=== PATIENT | male | born 1985 | race Two or more races ===

== ENCOUNTER 2019-04-18 12:40 | Emergency (ER) | payer SELFPAY ==
[2019-04-18] MEDS ORDERED: Morphine 4 MG/ML Syringe ONE (13:05)
[2019-04-18] MEDS ORDERED: Ondansetron 4 MG/2 ML SDV ONE (13:05)
[2019-04-18] MEDS ORDERED: Morphine 4 MG/ML Syringe IVPUSH ONE ×2 (13:07→15:12)
[2019-04-18] MEDS ORDERED: Ondansetron 4 MG/2 ML SDV IVPUSH ONE (13:07)
[2019-04-18] MEDS ORDERED: ceFAZolin 1 GM Vial IM ONE (13:14)
--- NOTE | 2019-04-18 13:26 | CR ---
Chest: 2 views of the chest were obtained. Comparison: No previous chest x-ray. Heart size and mediastinum are normal. Lungs are clear. Bony structures appear within normal limits for the patient's age. Impression: 1. Nothing acute is seen on 2 view chest x-ray. Diagnostic code #1 This report was dictated in [place] Standard Time
--- NOTE | 2019-04-18 13:26 | EDM.PDOC ---
ED HPI GENERAL MEDICAL PROBLEM - General Chief Complaint: Trauma Stated Complaint: NAIL IN HIS LT SIDE Time Seen by Provider: 04/18/19 13:00 Source of Information: Reports: Patient History Limitations: Reports: Language Barrier - History of Present Illness INITIAL COMMENTS - FREE TEXT/NARRATIVE: This 34 year old male while walking around at a construction site was accidently shot with a nail gun. The distance the patient was standing from the nail gun is unknown. He complains of a nail in his left lower chest to abdominal area. His friend states that the nail was about 2 inches long. He complains of pain in the area of the nail. He denies any SOB or abdominal pain. He denies any other symptoms. A plain film PA and Lateral chest x-ray was done. The lungs are without pneumothorax and mediastinal structures are intact. The nail appears to be in the left upper quad of the abdomen. After attempting to remove it, I noticed that it was a screw type nail. I decided to hold off on removal and get a CT of the chest, abdomen pelvis with contrast. Prior to going to CT, all of his vital signs are normal. He was given Morphine 4mg IV and Zofran 4mg IV. He will be placed on Ancef 1gram IV Onset: Sudden (as noted above) Severity: Moderate - Related Data Allergies Allergy/AdvReac Type Severity Reaction Status Date / Time No Known Allergies Allergy Verified 04/18/19 12:44 Home Meds: Home Meds Ibuprofen [Motrin] 800 mg PO BIDM PRN 5 Days #10 tab 04/18/19 [Rx] cephALEXin [Keflex] 500 mg PO Q12H PRN 6 Days #6 cap 04/18/19 [Rx] Past Medical History - Past Health History Medical/Surgical History: Denies Medical/Surgical History - Infectious Disease History Infectious Disease History: Reports: Other (See Below) Other Infectious Disease History: unknown Social & Family History - Family History Family Medical History: Noncontributory - Tobacco Use Smoking Status *Q: Unknown Ever Smoked - Caffeine Use Caffeine Use: Reports: None - Recreational Drug Use Recreational Drug Use: No Review of Systems - Review of Systems Review Of Systems: See Below Constitutional: Reports: No Symptoms Eyes: Reports: No Symptoms Ears: Reports: No Symptoms Nose: Reports: No Symptoms Mouth/Throat: Reports: No Symptoms Respiratory: Reports: No Symptoms Cardiovascular: Reports: No Symptoms GI/Abdominal: Reports: No Symptoms Genitourinary: Reports: No Symptoms Musculoskeletal: Reports: Other (pain in area of nail of left chest/upper left abdomen) Neurological: Reports: No Symptoms ED EXAM, GENERAL - Physical Exam Exam: See Below Exam Limited By: Language Barrier (History was obtained through an enterpeture) General Appearance: Alert, WD/WN, Anxious, Mild Distress Eye Exam: Bilateral Eye: EOMI, Normal Inspection, PERRL Ears: Normal External Exam, Normal Canal, Hearing Grossly Normal, Normal TMs Ear Exam: Bilateral Ear: Auricle Normal, Canal Normal, TM normal Nose: Normal Inspection, Normal Mucosa, No Blood Throat/Mouth: Normal Inspection, Normal Lips, Normal Teeth, Normal Gums, Normal Oropharynx, Normal Voice, No Airway Compromise Head: Atraumatic, Normocephalic Neck: Normal Inspection, Supple, Non-Tender, Full Range of Motion, Other (No JVD ) Respiratory/Chest: No Respiratory Distress, Lungs Clear, Normal Breath Sounds, No Accessory Muscle Use, Other (Tenderness is noted over the nail site area) Cardiovascular: Normal Peripheral Pulses, Regular Rate, Rhythm, No JVD, No Murmur Peripheral Pulses: 3+: Dorsalis Pedis (L), Dorsalis Pedis (R), 4+: Carotid (L), Carotid (R), Femoral (L), Femoral (R) GI/Abdominal: Normal Bowel Sounds, Soft, Non-Tender, No Organomegaly, No Distention, No Abnormal Bruit, No Mass, Other (nail appears to be located in the high left upper quadrant) (Male) Exam: Deferred Rectal (Males) Exam: Deferred Back Exam: Normal Inspection, Full Range of Motion, NT Extremities: Normal Inspection, Normal Range of Motion, Non-Tender, Normal Capillary Refill, No Pedal Edema Neurological: Alert, Oriented, CN II-XII Intact, Normal Cognition, Normal Gait, Normal Reflexes, No Motor/Sensory Deficits ED TRAUMA PROCEDURES - Foreign Body Removal Consent Obtained: Patient, Other (Verbal consent) Performing Doctor:: Adán Neff Foreign Body Other Location Comment:: Screw type power nail was located approx. 2.5 inches below the left nipple. Anesthesia Type: Local Findings:: After Betadine solution being thoroughly used to provide a sterile area, 1% Lidocaine with Epi was used to open the wound of about 3.5cm for exposure of the nail and it's subsequent removal. A martha was noted midway on the nail which was the reason why the nail could not be pulled out. The wound was explored and irrigated with 15ml of Betadine solution. No foreign body was identified. The wound was closed with 3, 3 Ethilon sutures. A sterile dressing was applied. The patient tolerated the procedure well. He was discharged with his friend home and placed on Keflex. Complications:: No Course - Vital Signs Last Recorded V/S: Last Vital Signs Temp Pulse 71 04/18/19 13:09 Resp 20 04/18/19 13:09 BP 138/85 04/18/19 13:09 Pulse Ox 97 04/18/19 13:09 - Orders/Labs/Meds Orders: Active Orders 24 hr Category Date Time Status UA W/SARITA RFLX IF INDICATED [URIN] Stat Lab 04/18/19 12:59 Ordered Labs: Laboratory Tests 04/18/19 04/18/19 04/18/19 Range/Units 13:05 13:05 13:05 WBC 5.48 (4.0-11.0) K/uL RBC 4.82 (4.50-5.90) M/uL Hgb 15.6 (13.0-17.0) g/dL Hct 43.7 (38.0-50.0) % MCV 90.7 (80.0-98.0) fL MCH 32.4 H (27.0-32.0) pg MCHC 35.7 (31.0-37.0) g/dL RDW Std Deviation 40.9 (28.0-62.0) fl RDW Coeff of Debbie 12 (11.0-15.0) % Plt Count 262 (150-400) K/uL MPV 10.10 (7.40-12.00) fL Neut % (Auto) 42.6 L (48.0-80.0) % Lymph % (Auto) 48.4 H (16.0-40.0) % Mayes % (Auto) 7.3 (0.0-15.0) % Eos % (Auto) 1.5 (0.0-7.0) % Baso % (Auto) 0.2 (0.0-1.5) % Neut # (Auto) 2.3 (1.4-5.7) K/uL Lymph # (Auto) 2.7 H (0.6-2.4) K/uL Mayes # (Auto) 0.4 (0.0-0.8) K/uL Eos # (Auto) 0.1 (0.0-0.7) K/uL Baso # (Auto) 0.0 (0.0-0.1) K/uL Nucleated RBC % 0.0 /100WBC Nucleated RBCs # 0 K/uL INR 1.01 Sodium 142 (136-148) mmol/L Potassium 3.4 L (3.5-5.1) mmol/L Chloride 104 (98-107) mmol/L Carbon Dioxide 25.5 (21.0-32.0) mmol/L BUN 19 H (7.0-18.0) mg/dL Creatinine 1.2 (0.8-1.3) mg/dL Est Cr Clr Drug Dosing 83.92 mL/min Estimated GFR (MDRD) > 60.0 ml/min Glucose 94 (74-106) mg/dL Calcium 8.8 (8.5-10.1) mg/dL Total Bilirubin 0.5 (0.2-1.0) mg/dL AST 21 (15-37) IU/L ALT 32 (14-63) IU/L Alkaline Phosphatase 74 (46-116) U/L Total Protein 7.9 (6.4-8.2) g/dL Albumin 4.8 (3.4-5.0) g/dL Globulin 3.1 (2.6-4.0) g/dL Albumin/Globulin Ratio 1.5 (0.9-1.6) Meds: Medications Discontinued Medications Generic Name Dose Route Start Last Admin Trade Name Freq PRN Reason Stop Dose Admin Cefazolin Sodium 1 gm 04/18/19 13:14 04/18/19 13:55 Ancef IM 04/18/19 13:15 Not Given ONETIME ONE Sodium Chloride 1,000 mls @ 999 mls/hr 04/18/19 13:39 04/18/19 13:51 Normal Saline IV 04/18/19 14:39 999 mls/hr .Bolus ONE Administration Sodium Chloride Confirm 04/18/19 13:43 04/18/19 13:57 Normal Saline Administered 04/18/19 13:44 Not Given Dose 100 mls @ as directed .ROUTE .STK-MED ONE Cefazolin Sodium/Dextrose 1 gm 50 mls @ 100 mls/hr 04/18/19 13:52 04/18/19 13 :56 / Premix IV 04/18/19 14:21 100 mls/hr ONETIME ONE Administration Lidocaine/Epinephrine Confirm 04/18/19 14:53 Xylocaine 1% With Epinephrine 1:100,000 Administered 04/18/19 14:54 Dose 20 ml .ROUTE .STK-MED ONE Lidocaine/Epinephrine 20 ml 04/18/19 15:02 04/18/19 15:03 Xylocaine 1% With Epinephrine 1:100,000 INJECT 04/18/19 15:03 20 ml ONETIME ONE Administration Morphine Sulfate 4 mg 04/18/19 13:07 04/18/19 13:08 Morphine IVPUSH 04/18/19 13:08 4 mg ONETIME ONE Administration Morphine Sulfate Confirm 04/18/19 13:05 04/18/19 13:39 Morphine Administered 04/18/19 13:06 Not Given Dose 8 mg .ROUTE .STK-MED ONE Morphine Sulfate 4 mg 04/18/19 15:12 Morphine IVPUSH 04/18/19 15:13 ONETIME ONE Ondansetron HCl 4 mg 04/18/19 13:07 04/18/19 13:08 Zofran IVPUSH 04/18/19 13:08 4 mg ONETIME ONE Administration Ondansetron HCl Confirm 04/18/19 13:05 04/18/19 13:39 Zofran Administered 04/18/19 13:06 Not Given Dose 4 mg .ROUTE .STK-MED ONE Departure - Departure Time of Disposition: 15:37 Disposition: Home, Self-Care 01 Condition: Good Clinical Impression: Foreign body (FB) in soft tissue - Discharge Information *PRESCRIPTION DRUG MONITORING PROGRAM REVIEWED*: Yes *COPY OF PRESCRIPTION DRUG MONITORING REPORT IN PATIENT [place]: Yes Forms: ED Department Discharge Additional Instructions: Take all medications as directed. Rest for the next 12 hours. Wound check in 4 days and sutures out in 10 days. Return to the ED if your condition gets worse or should you need to have your sutures removed. The following information is given to patients seen in the emergency department who are being discharged to home. This information is to outline your options for follow-up care. We provide all patients seen in our emergency department with a follow-up referral. The need for follow-up, as well as the timing and circumstances, are variable depending upon the specifics of your emergency department visit. If you don't have a primary care physician on staff, we will provide you with a referral. We always advise you to contact your personal physician following an emergency department visit to inform them of the circumstance of the visit and for follow-up with them and/or the need for any referrals to a consulting specialist. The emergency department will also refer you to a specialist when appropriate. This referral assures that you have the opportunity for follow-up care with a specialist. All of these measure are taken in an effort to provide you with optimal care, which includes your follow-up. Under all circumstances we always encourage you to contact your private physician who remains a resource for coordinating your care. When calling for follow-up care, please make the office aware that this follow-up is from your recent emergency room visit. If for any reason you are refused follow-up, please contact the [facility] Emergency Department at and asked to speak to the emergency department charge nurse. Sepsis Event Note - Evaluation Sepsis Screening Result: No Definite Risk - Focused Exam Vital Signs: Vital Signs Pulse Resp BP Pulse Ox 04/18/19 13:09 71 20 138/85 97 04/18/19 12:44 91 18 137/79 98 Date Exam was Performed: 04/18/19 Time Exam was Performed: 15:36 - My Orders Last 24 Hours: My Active Orders 04/18/19 12:59 UA W/SARITA RFLX IF INDICATED [URIN] Stat - Assessment/Plan Last 24 Hours: My Active Orders 04/18/19 12:59 UA W/SARITA RFLX IF INDICATED [URIN] Stat
[2019-04-18] MEDS ORDERED: Sodium Chloride 0.9% 1,000 ML IV ONE (13:39)
[2019-04-18] MEDS ORDERED: Sodium Chloride 0.9% 100 ML ONE (13:43)
[2019-04-18 13:48] LABS: BLOOD UREA NITROGEN,BUN 19 mg/dL (7.0-18.0); CARBON DIOXIDE,CO2 25.5 mmol/L (21.0-32.0); CHLORIDE,CL 104 mmol/L (98-107); GLUCOSE RANDOM 94 mg/dL (74-106); POTASSIUM,K 3.4 mmol/L (3.5-5.1); SODIUM,NA 142 mmol/L (136-148)
[2019-04-18] MEDS ORDERED: ceFAZolin 1 GM in Premix Bag 1 BAG IV ONE (13:52)
--- NOTE | 2019-04-18 14:15 | CT ---
CT chest Technique: Multiple axial sections through the chest were obtained. Intravenous contrast was utilized. Comparison: Prior chest CT is not available. Findings: Aorta and pulmonary arteries show normal opacifications. No mediastinal hematoma is seen. No adenopathy is noted. No axillary abnormalities are noted. No pericardial thickening is seen. Metallic foreign body (metallic nail) is noted within the left upper abdomen which involves the subcutaneous fat but does not penetrate into the abdominal wall muscle. Lungs are clear. No pneumothorax is seen. No pulmonary contusion is identified. Impression: 1. Metallic nail within the left anterior abdominal wall which terminates within the subcutaneous fat and shows no penetration into the abdominal wall musculature. 2. CT chest is otherwise unremarkable. Diagnostic code #3 This report was dictated in [place] Standard Time
--- NOTE | 2019-04-18 14:25 | CT ---
CT abdomen and pelvis Technique: Multiple axial sections were obtained from above the dome of the diaphragm inferiorly through the pubic symphysis. Intravenous contrast was utilized. No oral contrast has been given. Comparison: No prior abdominal imaging. Findings: Metallic nail is noted within the left anterior abdominal wall. Nail penetrates into the subcutaneous fat but shows no penetration into the abdominal wall musculature. Liver and spleen appear within normal limits. Single gallstone which is partially calcified is noted within the gallbladder. Adrenal glands show no nodule. Pancreas is within normal limits. Kidneys show symmetric contrast enhancement without hydronephrosis or mass. Aorta shows no aneurysm. No retroperitoneal adenopathy or mesenteric abnormalities are seen. No pelvic mass or adenopathy is seen. No free fluid or inflammatory change is identified within the abdomen or pelvis. Appendix is seen which is normal in size. Impression: 1. Metallic nail projected within the anterior left abdominal wall. This penetrates into skin and subcutaneous fat but does not penetrate into any muscle. 2. Single gallstone within the gallbladder. 3. No additional abnormality is identified on CT study of the abdomen and pelvis. Diagnostic code #5 This report was dictated in [place] Standard Time
[2019-04-18] MEDS ORDERED: Lidocaine 1% with EPINEPHrine 1:100,000 20 ML MDV ONE (14:53)
[2019-04-18] MEDS ORDERED: Lidocaine 1% with EPINEPHrine 1:100,000 20 ML MDV INJECT ONE (15:02)
[2019-04-18] MEDS ORDERED: Iopamidol 755 MG/ML 200 ML Multipack Bottle IVPUSH ONE (16:01)
== END 2019-04-18 16:10 | disposition home or self-care (01) ==
LOC: MW.ED 12:40
DX: S21.122A Laceration with foreign body of left front wall of thorax without penetration into thoracic cavity, initial encounter (principal); S31.12 Laceration with foreign body of abdominal wall without penetration into peritoneal cavity; W29.4XXA Contact with nail gun, initial encounter
CPT/HCPCS: 12002; 36415; 71046; 71260; 74177; 80053; 85025; 85610; 96365; 96375; 96376; 99284; J0690; J2270; J2405; J7030; Q9967; 20520

== ENCOUNTER 2023-04-26 18:38 | Emergency (ER) | payer SELFPAY ==
[2023-04-26] MEDS ORDERED: Ondansetron 4 MG/2 ML SDV IVPUSH ONE ×2 (19:03→20:26)
[2023-04-26] MEDS ORDERED: Morphine 4 MG/ML Syringe IVPUSH ONE ×2 (19:03→21:22)
[2023-04-26] MEDS ORDERED: Sodium Chloride 0.9% 10 ML Syringe FLUSH PRN (19:03)
[2023-04-26] MEDS ORDERED: Sodium Chloride 0.9% 2.5 ML Syringe FLUSH PRN (19:03)
[2023-04-26] MEDS ORDERED: Sodium Chloride 0.9% 1,000 ML IV ONE (19:03)
[2023-04-26] MEDS ORDERED: Naloxone 0.4 MG/ML SDV IVPUSH PRN (19:03)
[2023-04-26 19:45] LABS: BASOPHILS ABSOLUTE AUTO 0.02 K/uL (0.00-0.20); BASOPHILS PERCENT AUTO 0.3 % (0.0-1.0); EOSINOPHILS ABSOLUTE AUTO 0.06 K/uL (0.00-0.45); EOSINOPHILS PERCENT AUTO 0.9 % (0.0-6.0); HEMATOCRIT 42.5 % (42.0-52.0); HEMOGLOBIN 15.6 g/dL (14.0-18.0); IMMATURE GRAN ABSOLUTE AUTO 0.02 K/uL (0.00-0.05); IMMATURE GRAN PERCENT AUTO 0.3 % (0.0-0.4); LYMPHOCYTES ABSOLUTE AUTO 1.47 K/uL (1.00-4.80); LYMPHOCYTES PERCENT AUTO 22.2 % (24.0-44.0); MEAN CORPUSCULAR HEMOGLOBIN 32.4 pg (28.0-32.0); MEAN CORPUSCULAR HGB CONC 36.7 g/dL (32.0-36.0); MEAN CORPUSCULAR VOLUME 88.2 fL (83.0-99.0); MEAN PLATELET VOLUME 9.8 fL (9.4-12.4); MONOCYTES ABSOLUTE AUTO 0.81 K/uL (0.00-0.80); MONOCYTES PERCENT AUTO 12.3 % (0.0-8.0); NEUTROPHILS ABSOLUTE AUTO 4.23 K/uL (1.80-7.70); PLATELET COUNT,PLT 240 K/uL (150-400); RED BLOOD CELL COUNT 4.82 M/uL (4.52-5.90); WHITE BLOOD CELL COUNT,WBC 6.61 K/uL (3.9-11.3)
[2023-04-26] MEDS ORDERED: Morphine 2 MG/ML SYRINGE IVPUSH ONE (20:26)
[2023-04-26] MEDS ORDERED: Ketorolac 30 MG/ML SDV IVPUSH ONE (20:26)
[2023-04-26 20:33] LABS: BILIRUBIN TOTAL 0.8 mg/dL (0.2-1.0); CALCIUM 9.4 mg/dL (8.5-10.1); CARBON DIOXIDE,CO2 25.6 mmol/L (21.0-32.0); CREATININE 1.4 mg/dL (0.8-1.3); EST CRCL DRUG DOSING (CG) 52.92 mL/min; POTASSIUM,K 3.8 mmol/L (3.5-5.1)
[2023-04-26] MEDS ORDERED: Iopamidol 755 MG/ML 500 ML Multipack Bottle IVPUSH STA (22:34)
[2023-04-26] MEDS ORDERED: droPERidol 5 MG/2 ML SDV IVPUSH ONE (23:19)
[2023-04-26 23:35] LABS: APPEARANCE,URINE CLEAR; BILIRUBIN,URINE NEGATIVE (NEGATIVE); COLOR,URINE YELLOW; GLUCOSE,URINE NEGATIVE (NEGATIVE); KETONES,URINE 15 mg/dL (NEGATIVE); LEUKOCYTE ESTERASE,URINE NEGATIVE (NEGATIVE); NITRITE,URINE NEGATIVE (NEGATIVE); OCCULT BLOOD,URINE NEGATIVE (NEGATIVE); PROTEIN,URINE NEGATIVE (NEGATIVE)
[2023-04-27] MEDS ORDERED: Naloxone 0.4 MG/ML SDV IVPUSH PRN (00:12)
[2023-04-27] MEDS ORDERED: HYDROmorphone 1 MG/ML Syringe IVPUSH ONE (00:12)
== END 2023-04-27 00:29 | disposition home or self-care (01) ==
LOC: MERGE 18:38 → MW.ED 18:38
DX: K80.50 Calculus of bile duct without cholangitis or cholecystitis without obstruction (principal)
CPT/HCPCS: 36415; 74177; 76705; 80053; 81003; 83690; 85025; 96361; 96374; 96375; 96376; 99284; J1170; J1790; J1885; J2270; J2405; J3490; J7030; Q9967

== ENCOUNTER 2023-04-27 10:02 | Day surgery (SDC) | payer SELFPAY ==
[2023-04-27] MEDS ORDERED: Sodium Chloride 0.9% 1,000 ML IV ONE (11:07)
[2023-04-27] MEDS ORDERED: Ondansetron 4 MG/2 ML SDV IVPUSH ONE (11:08)
[2023-04-27] MEDS ORDERED: HYDROmorphone 1 MG/ML Syringe IVPUSH ONE (11:08)
[2023-04-27 11:56] LABS: BASOPHILS ABSOLUTE AUTO 0.01 K/uL (0.00-0.20); BASOPHILS PERCENT AUTO 0.1 % (0.0-1.0); EOSINOPHILS ABSOLUTE AUTO 0.01 K/uL (0.00-0.45); EOSINOPHILS PERCENT AUTO 0.1 % (0.0-6.0); HEMATOCRIT 41.8 % (42.0-52.0); HEMOGLOBIN 15.2 g/dL (14.0-18.0); IMMATURE GRAN ABSOLUTE AUTO 0.03 K/uL (0.00-0.05); IMMATURE GRAN PERCENT AUTO 0.4 % (0.0-0.4); LYMPHOCYTES ABSOLUTE AUTO 0.92 K/uL (1.00-4.80); LYMPHOCYTES PERCENT AUTO 10.8 % (24.0-44.0); MEAN CORPUSCULAR HEMOGLOBIN 32.3 pg (28.0-32.0); MEAN CORPUSCULAR HGB CONC 36.4 g/dL (32.0-36.0); MEAN CORPUSCULAR VOLUME 88.7 fL (83.0-99.0); MONOCYTES ABSOLUTE AUTO 0.98 K/uL (0.00-0.80); MONOCYTES PERCENT AUTO 11.5 % (0.0-8.0); NEUTROPHILS ABSOLUTE AUTO 6.54 K/uL (1.80-7.70); NEUTROPHILS PERCENT AUTO 77.1 % (41.0-71.0); PLATELET COUNT,PLT 233 K/uL (150-400); RED BLOOD CELL COUNT 4.71 M/uL (4.52-5.90); WHITE BLOOD CELL COUNT,WBC 8.49 K/uL (3.9-11.3)
[2023-04-27 12:13] LABS: A/G RATIO 0.9 (0.9-1.6); ALBUMIN 3.7 g/dL (3.4-5.0); CARBON DIOXIDE,CO2 24.5 mmol/L (21.0-32.0); CREATININE 1.3 mg/dL (0.8-1.3); EST CRCL DRUG DOSING (CG) 72.03 mL/min; POTASSIUM,K 3.6 mmol/L (3.5-5.1)
[2023-04-27 12:16] LABS: LACTIC ACID 1.2 mmol/L (0.4-2.0)
[2023-04-27 12:28] LABS: HEMOGLOBIN A1C 4.8 %
[2023-04-27] MEDS ORDERED: Piperacillin/Tazobactam 3.375 GM in Sodium Chloride 0.9% 100 ML IV ONE (12:37)
[2023-04-27] MEDS ORDERED: Piperacillin/Tazobactam 4.5 GM in Sodium Chloride 0.9% 100 ML IV ONE (12:40)
[2023-04-27] MEDS ORDERED: Ropivacaine 0.5% 5 MG/ML 30 ML SDV ONE (13:24)
[2023-04-27] MEDS ORDERED: Famotidine 20 MG/2 ML SDV ONE (13:25)
[2023-04-27] MEDS ORDERED: fentaNYL 250 MCG/5 ML SDV ONE (13:33)
[2023-04-27] MEDS ORDERED: Propofol 200 MG/20 ML SDV ONE (13:33)
[2023-04-27] MEDS ORDERED: Morphine 10 MG/ML SDV ONE (13:33)
[2023-04-27] MEDS ORDERED: Bupivacaine 0.5% 30 ML SDV ONE (13:40)
[2023-04-27] MEDS ORDERED: Lactated Ringers 1,000 ML IV SCH (14:00)
[2023-04-27] MEDS ORDERED: Lidocaine 2% 11 ML Jelly Filled Syringe ONE (14:10)
[2023-04-27] MEDS ORDERED: fentaNYL 100 MCG/2 ML SDV ONE (16:08)
[2023-04-27] MEDS ORDERED: Ondansetron 4 MG/2 ML SDV IVPUSH PRN (16:52)
[2023-04-27] MEDS ORDERED: Sodium Chloride 0.9% 20 ML SDV IV PRN (16:52)
[2023-04-27] MEDS ORDERED: Acetaminophen/oxyCODONE 325-5 MG Tab PO PRN (16:52)
[2023-04-27] MEDS ORDERED: Sodium Chloride 0.9% 2.5 ML Syringe FLUSH PRN (16:52)
[2023-04-27] MEDS ORDERED: Sodium Chloride 0.9% 10 ML Syringe FLUSH PRN (16:52)
[2023-04-27] MEDS ORDERED: HYDROmorphone 1 MG/ML Syringe IVPUSH PRN (16:52)
[2023-04-27] MEDS ORDERED: Rocuronium Bromide 50 MG/5 ML Syringe ONE (20:00)
[2023-04-27] MEDS ORDERED: Ondansetron 4 MG/2 ML SDV ONE (20:00)
[2023-04-27] MEDS ORDERED: Dexamethasone 4 MG/ML 5 ML MDV ONE (20:00)
[2023-04-27] MEDS ORDERED: Sugammadex Sodium 200 MG/2 ML VIAL ONE (20:00)
[2023-04-28 05:27] LABS: HEMATOCRIT 35.9 % (42.0-52.0); HEMOGLOBIN 12.6 g/dL (14.0-18.0); MEAN CORPUSCULAR HEMOGLOBIN 31.5 pg (28.0-32.0); MEAN CORPUSCULAR HGB CONC 35.1 g/dL (32.0-36.0); MEAN CORPUSCULAR VOLUME 89.8 fL (83.0-99.0); MEAN PLATELET VOLUME 9.5 fL (9.4-12.4); PLATELET COUNT,PLT 222 K/uL (150-400); WHITE BLOOD CELL COUNT,WBC 8.61 K/uL (3.9-11.3)
[2023-04-28 05:48] LABS: A/G RATIO 0.8 (0.9-1.6); ALBUMIN 2.8 g/dL (3.4-5.0); BILIRUBIN TOTAL 0.8 mg/dL (0.2-1.0); CALCIUM 8.2 mg/dL (8.5-10.1); CARBON DIOXIDE,CO2 28.9 mmol/L (21.0-32.0); CREATININE 1.1 mg/dL (0.8-1.3); EST CRCL DRUG DOSING (CG) 85.13 mL/min; POTASSIUM,K 3.9 mmol/L (3.5-5.1); PROTEIN TOTAL,TP 6.5 g/dL (6.4-8.2)
== END 2023-04-28 12:02 | disposition home or self-care (01) ==
LOC: MW.ED 10:02 → MW.SDS 13:31 → MERGE 13:31 → MW.MS 16:56 → MW.SDS 04-28 12:02
PROVIDERS: ATTEND Surgery
DX: K80.00 Calculus of gallbladder with acute cholecystitis without obstruction (principal); K80.50 Calculus of bile duct without cholangitis or cholecystitis without obstruction
CPT/HCPCS: 36415; 47562; 64486; 64488; 76705; 80053; 83036; 83605; 85025; 85027; 87040; 87070; 87075; 87205; 96361; 96365; 96375; 99285; A9270; J0131; J0665; J1100; J1170; J2270; J2405; J2543; J2704; J2795; J3010; J3490; J7030; J7120; 00790